=== PATIENT | male | born 1970 | race Caucasian/White ===

== ENCOUNTER 2018-07-19 19:17 | Emergency (ER) | payer SELFPAY ==
[~2018-07-19] VITALS: Ht 190.5 cm; Wt 136.1 kg
[2018-07-19 19:25] VITALS: BP_SYST 149
[2018-07-19 23:33] VITALS: BP_SYST 134
== END 2018-07-19 23:15 | disposition home or self-care (01) ==
LOC: SED 19:17
DX: Z00.00 Encounter for general adult medical examination without abnormal findings (principal); F17.210 Nicotine dependence, cigarettes, uncomplicated; R03.0 Elevated blood-pressure reading, without diagnosis of hypertension
CPT/HCPCS: 99283